=== PATIENT | female | born 1990 | race Caucasian/White ===

== ENCOUNTER → 2017-04-10 | Outpatient (CLI) | payer BC ==
[~2017-04-10] MED LIST: EPP3 IM; IBUP-103 PO; RIZA10TA18 PO
== END | disposition home or self-care (01) ==
LOC: C.PAPS 09:29
PROVIDERS: ATTEND Obstetrics & Gynecology
DX: Z01.419 Encounter for gynecological examination (general) (routine) without abnormal findings (principal)

== ENCOUNTER → 2017-05-17 | Outpatient (CLI) | payer BC ==
[2017-05-17 18:46] LABS: URINE APPEARANCE CLEAR (CLEAR); URINE BILIRUBIN NEG (NEG); URINE COLOR YELLOW; URINE NITRITE NEG (NEG); URINE SPECIFIC GRAVITY 1.032 (1.000-1.030); UROBILINOGEN NEG (NEG)
[2017-05-17 18:58] LABS: MANUAL MICROSCOPIC REQUIRED? NO; REVIEW REQ? NO
== END | disposition home or self-care (01) ==
LOC: C.LABSPEC 17:45
PROVIDERS: ATTEND Obstetrics & Gynecology
DX: Z34.01 Encounter for supervision of normal first pregnancy, first trimester (principal)

== ENCOUNTER → 2017-05-25 | Outpatient (CLI) | payer BC ==
[2017-05-25 17:49] LABS: BASO % 0.5 %; BASO ABS # 0.04 K/uL (0-0.2); COMPLETE YES; EOS % 1.4 %; HEMATOCRIT 34.7 % (37-47); IG% 0.3 %; LYMPH % 33.4 %; LYMPH ABS # 2.59 K/uL (1.2-3.4); MEAN CELL VOLUME 89.4 fL (80-100); MEAN CORPUSCULAR HEMOGLOBIN 31.2 pg (25-34); MEAN CORPUSCULAR HGB CONC 34.9 g/dl (32-36); MEAN PLATELET VOLUME 9.4 fL (7.4-10.4); MONO % 9.1 %; NEUT % 55.3 %; PLATELET COUNT 249 K/uL (130-400); RED BLOOD COUNT 3.88 M/uL (4.2-5.4); WHITE BLOOD COUNT 7.76 K/uL (4.8-10.8)
[2017-05-29 10:37] LABS: CHLAMYDIA TRACH RNA*** NOT DETECTED (NOT DETECTED); GC (NEIS GONORRHOEAE)RNA** NOT DETECTED (NOT DETECTED)
== END | disposition home or self-care (01) ==
LOC: C.LAB1850 16:13
PROVIDERS: ATTEND Obstetrics & Gynecology
DX: Z34.01 Encounter for supervision of normal first pregnancy, first trimester (principal)

== ENCOUNTER → 2017-07-20 | Outpatient (CLI) | payer BC ==
[2017-07-20 18:16] LABS: GTGD 50 Grams
[2017-07-23 14:07] LABS: AFP CONCENTRATION 53.7 NG/ML; AFP MULTIPLE OF MEDIAN 1.41; AFPTS INSULIN DEP DIABETIC? NO; AFPTS MATERNAL WT 145 LBS; ALPHA-FETOPROTEIN RACE AFRICAN AMERICAN=B; EDD DETERMINED BY ULTRASOUND; ESTRIOL MULTIPLE OF MEDIAN 1.46; HISTORY OF NTD NO; INHIBIN A 74 PG/ML; INHIBIN A MOM 0.43; REPEAT SAMPLE? NO; hCG MULTIPLE OF MEDIAN 0.45
== END | disposition home or self-care (01) ==
LOC: C.LAB1850 16:46
PROVIDERS: ATTEND Obstetrics & Gynecology
DX: Z34.02 Encounter for supervision of normal first pregnancy, second trimester (principal)

== ENCOUNTER → 2017-10-10 | Outpatient (CLI) | payer BC ==
[2017-10-10 17:31] LABS: HEMATOCRIT 32.9 % (37-47); HEMOGLOBIN 11.4 g/dL (12.0-16.0)
== END | disposition home or self-care (01) ==
LOC: C.LAB1850 16:12
PROVIDERS: ATTEND Obstetrics & Gynecology
DX: Z34.03 Encounter for supervision of normal first pregnancy, third trimester (principal); Z3A.00 Weeks of gestation of pregnancy not specified

== ENCOUNTER → 2017-10-19 | Outpatient (CLI) | payer BC | END | disposition home or self-care (01) | LOC: C.LAB1850 07:24 | PROVIDERS: ATTEND Obstetrics & Gynecology | DX: O28.1 Abnormal biochemical finding on antenatal screening of mother (principal) ==

== ENCOUNTER → 2017-12-14 | Outpatient (CLI) | payer BC | END | disposition home or self-care (01) | LOC: C.LABSPEC 18:15 | PROVIDERS: ATTEND Obstetrics & Gynecology | DX: Z34.03 Encounter for supervision of normal first pregnancy, third trimester (principal) ==

== ENCOUNTER 2018-01-01 02:05 | Inpatient (IN) | payer BC ==
[~2018-01-01] VITALS: Ht 162.6 cm; Wt 74.4 kg
[2018-01-01] MEDS ORDERED: LACTATED RINGER'S 1000ML 1,000 ML IV SCH (02:39)
[2018-01-01] MEDS ORDERED: LACTATED RINGER'S 1000ML 1,000 ML IV PRN (02:39)
[2018-01-01] MEDS ORDERED: PRENTAB26 PO (02:47)
[2018-01-01 02:50] VITALS: Ht 162.6 cm; Wt 74.4 kg
[2018-01-01 03:15] LABS: MEAN CELL VOLUME 90.7 fL (80-100); MEAN CORPUSCULAR HEMOGLOBIN 31.9 pg (25-34); MEAN CORPUSCULAR HGB CONC 35.1 g/dl (32-36); PLATELET COUNT 251 K/uL (130-400); RED CELL DISTRIBUTION WIDTH CV 12.8 % (11.5-14.5); RED CELL DISTRIBUTION WIDTH SD 42.5 fL (36.4-46.3); WHITE BLOOD COUNT 16.31 K/uL (4.8-10.8)
[2018-01-01] MEDS ORDERED: BUPIVACAINE 0.25% 30 ML VIAL ONE (03:18)
[2018-01-01] MEDS ORDERED: EpHEDrine SULFATE INJ 50 MG/ML AMP ONE (03:19)
[2018-01-01] MEDS ORDERED: FENTANYL CITRATE INJ 50 MCG/1 ML 2 ML VIAL ONE (03:19)
[2018-01-01] MEDS ORDERED: FENTANYL 2MCG/ML ROPIV 1.25MG/ML 100ML BAG EPI ONE (03:19)
[2018-01-01] MEDS ORDERED: LACTATED RINGER'S 1000ML 500 ML IV PRN ×2 (04:06→05:51)
[2018-01-01] MEDS ORDERED: NALOXONE HCL INJ 1 MG in SODIUM CHLORIDE 0.9% 1000ML 1,000 ML IV PRN (04:06)
[2018-01-01] MEDS ORDERED: ONDANSETRON INJ 2 MG/ML 2 ML VIAL IV PRN (04:15)
[2018-01-01] MEDS ORDERED: NALOXONE HCL INJ 0.4 MG/1 ML VIAL/CARP IV PRN (04:15)
[2018-01-01] MEDS ORDERED: PROMETHAZINE HCL INJ 6.25 MG in SODIUM CHLORIDE 0.9% 50ML 50 ML IV PRN (04:15)
[2018-01-01] MEDS ORDERED: FENTANYL 2MCG/ML ROPIV 1.25MG/ML 100ML BAG EPI PRN (04:15)
[2018-01-01] MEDS ORDERED: EpHEDrine SULFATE INJ 50 MG/ML AMP IV PRN (04:15)
[2018-01-01] MEDS ORDERED: NALBUPHINE HCL INJ 10 MG/ML AMP IV PRN (04:15)
[2018-01-01] MEDS ORDERED: DiphenhydrAMINE HCL 50 MG/ML VIAL IV PRN (04:15)
[2018-01-01] MEDS ORDERED: OXYTOCIN 30 UNITS/500ML NSS IV PRN ×2 (06:00→09:15)
--- NOTE | 2018-01-01 08:27 | DELIVERY SUMMARY ---
DATE OF OPERATION: 01/01/2018 The patient dilated to complete and pushed to deliver a viable male Apgars 8 and 9 via over small second-degree perineal laceration. Mouth and nose bulb suctioned at the perineum. Shoulders and body are delivered with ease. The was vigorous and crying at . Cord is clamped at 30 seconds of life. to maternal abdomen, where the cord was then doubly clamped and cut. The placenta was delivered spontaneously and intact, 3-vessel cord. Hemostasis achieved with dilute Pitocin and uterine massage. Cervix and sulci intact. Perineal laceration was repaired in a usual fashion with 3-0 Vicryl. Right labial separation reapproximated using 4-0 Vicryl. Mother and baby stable in recovery. EBL is 300 mL. I attest to the content of the Intraoperative Record and any orders documented therein. Any exceptions are noted below. MTDD
--- NOTE | 2018-01-01 09:06 | Anesthesia Procedure Note ---
Anesthesia Epidural Removal Nt Date & Time Jan 01, 2018 at 09:06 Notes Mental Status: alert / awake / arousable, participated in evaluation Nausea / Vomiting: adequately controlled Pain: adequately controlled Airway Patency, RR, SpO2: stable & adequate BP & HR: stable & adequate Hydration State: stable & adequate Neuraxial Anesthesia: was administered Anesthetic Complications: no major complications apparent, pt satisfied with anesthetic care Epidural: removed without complications, with tip intact
[2018-01-01] MEDS ORDERED: OXYCODONE/ACETAMINOPHEN 5-325 TAB PO PRN (09:15)
[2018-01-01] MEDS ORDERED: LANOLIN OINT EXT PRN (09:15)
[2018-01-01] MEDS ORDERED: ACETAMINOPHEN 325 MG TAB PO PRN (09:15)
[2018-01-01] MEDS ORDERED: HYDROCORTISONE ACETATE 25 MG SUPP PR PRN (09:15)
[2018-01-01] MEDS ORDERED: SUPERCREAM 0.870 % 15GM JAR EXT PRN (09:15)
[2018-01-01] MEDS ORDERED: DIPHTHERIA/TETANUS/PERTUSSIS 0.5 ML SYR/VIAL IM. ONE (09:15)
[2018-01-01] MEDS: OXYTOCIN INJ 20 UNITS in LACTATED RINGER'S 1000ML 1,000 ML IV SCH ×2 (10:51→20:08)
[2018-01-01 13:25] VITALS: BP 129/68; PULSE 89; TEMP 36.7
[2018-01-01 15:45] VITALS: BP 129/76; PULSE 85; TEMP 37.2; O2SAT 99
[2018-01-01] MEDS: IBUPROFEN 600 MG TAB PO PRN (16:26)
[2018-01-01 20:10] VITALS: BP 98/60; PULSE 82; TEMP 36.8; O2SAT 97
[2018-01-01] MEDS: DOCUSATE SODIUM 100 MG CAP PO SCH (20:58)
[2018-01-01 23:50] VITALS: BP 114/74; PULSE 78; TEMP 36.5
[2018-01-02 04:45] VITALS: BP 126/83; PULSE 77; TEMP 36.4
[2018-01-02] MEDS: IBUPROFEN 600 MG TAB PO PRN ×2 (04:58→17:40)
--- NOTE | 2018-01-02 06:39 | Progress Note ---
Subjective Jan 02, 2018. Subjective conversation w/ patient, conversation w/ family, physical exam, chart review, lab review Ambulation: ambulating normally Voiding: no voiding problems Passing Gas: Yes Diet Tolerance: Regular Diet Lochia: Moderate Feeding Type: Breast Feeding Review of Systems Constitutional: No fever, No chills Respiratory: No cough, No shortness of breath Cardiac: No chest pain Abdomen: No pain, No nausea, No vomiting Female : No dysuria Objective Vital Signs Date Time Temp Pulse Resp B/P (MAP) Pulse Ox O2 Delivery O2 Flow Rate FiO2 01/02/18 04:45 36.4 77 18 126/83 (97) 01/01/18 23:50 Room Air 01/01/18 23:50 36.5 78 16 114/74 (87) 01/01/18 20:10 36.8 82 18 98/60 (73) 97 Room Air 01/01/18 15:45 99 Room Air 01/01/18 15:45 37.2 85 18 129/76 01/01/18 13:25 36.7 89 18 129/68 Physical Exam General Appearance: WELL-APPEARING, WD/WN, NO APPARENT DISTRESS Respiratory/Chest: lungs clear, no respiratory distress Cardiovascular: regular rate, rhythm, no murmur Abdomen: non tender, soft Fundus: Firm, Relation to Umbilicus (2 cm below u) Extremities: non-tender, normal inspection Medications Current Inpatient Medications Medications (Trade) Dose Ordered Sig/Regulo Route Start Time Stop Time Status Last Admin Dose Admin Oxytocin (Pitocin IV) 30 units UD PRN IV 01/01/18 09:15 01/31/18 09:14 Benzocaine (Dermoplast Aero Spr) 1 appln PRN PRN EXT 01/01/18 09:15 01/31/18 09:14 Cocaine HCl (Supercream 0.870% Cr) BID PRN EXT 01/01/18 09:15 01/15/18 09:14 Hydrocortisone Acetate (Anusol Hc Supp) 25 mg BID PRN OK 01/01/18 09:15 01/31/18 09:14 Lanolin (Lanolin Oint) PRN PRN EXT 01/01/18 09:15 01/31/18 09:14 Ibuprofen (Motrin Tab) 600 mg Q4H PRN PO 01/01/18 09:15 01/31/18 09:14 01/02/18 04:58 600 MG Acetaminophen (Tylenol Tab) 650 mg Q6H PRN PO 01/01/18 09:15 01/31/18 09:14 Oxycodone/ Acetaminophen (Percocet 5-325mg Tab) 1 tab Q4H PRN PO 01/01/18 09:15 01/15/18 09:14 Docusate Sodium (coLACE CAP) 100 mg BID PO 01/01/18 20:00 01/31/18 19:59 01/01/18 20:58 100 MG Assessment and Plan Post- Day#: 1 Continue Routine Care: 27 A+/GBS-/RI PPD1, vaginal delivery morning of 01/01. Reviewed vitals, WNL. No signs or sx of anemia. Patient is doing well clinically. Plan; 1. Cont. pp care; ambulate, control pain, support BF, monitor lochia Resident Physician Supervision Note: I interviewed and examined the patient. Discussed with Dr. Magdaleno and agree with findings and plan as documented in the note. Any exceptions or clarifications are listed here: Doing well. Routine care. ff 2 down. voiding, ambulating and ralph po well. . Documented By: Nancy Adrian
[2018-01-02 08:10] VITALS: BP 110/76; PULSE 76; TEMP 37; O2SAT 99
[2018-01-02] MEDS: BENZOCAINE 20% AER SPR 82.5 GM CAN EXT PRN (08:20)
[2018-01-02] MEDS: DOCUSATE SODIUM 100 MG CAP PO SCH ×2 (08:20→20:38)
[2018-01-02 15:18] VITALS: BP 125/82; PULSE 75; TEMP 37
[2018-01-03 00:10] VITALS: BP 120/79; PULSE 82; TEMP 37.1; O2SAT 98
[2018-01-03] MEDS ORDERED: NURSING VERBAL MED ORDER ONE (00:30)
[2018-01-03] MEDS ORDERED: MAGNESIUM HYDROXIDE SUSP 30 ML UDC PO ONE (00:45)
--- NOTE | 2018-01-03 06:07 | Discharge Instructions ---
Discharge Instructions Date of Service Jan 03, 2018. Admission Reason for Admission: LABOR Discharge Discharge Diagnosis / Problem: vaginal delivery Discharge Goals Goal(s): Routine recovery after delivery Medications Continue Dispensed Medications: supercream, dermaplast, tucks, lansinoh Activity Recommendations Activity Limitations: per Instructions/Follow-up section . Instructions / Follow-Up Instructions / Follow-Up ACTIVITY RECOMMENDATIONS: * Gradual return to full activity over the next 2-3 weeks. * No lifting - nothing heavier than baby over the next 2-3 weeks. * Do not engage in vigorous exercise, sexual activity or sports until cleared by your physician. * Do not drive or operate any motorized equipment until cleared by your physician. * You may shower/bathe daily. MEDICATIONS: For discomfort or pain, you may use Acetaminophen (Tylenol), Ibuprofen (Advil), or Naproxen (Aleve) following the package directions. For constipation you may use Colace following the package directions. BREAST CARE: If you are not breast feeding: * Wear a supportive bra 24 hours a day for one to two weeks. * Avoid stimulating your breasts and nipples as much as possible during the first few weeks after delivery. * When taking a shower, have the warm water hit your back, not breasts. * When your breasts feel full, apply ice packs. Usually three to four times a day helps ease the discomfort. * Take a mild pain medication (Tylenol / Motrin) when you are uncomfortable. If breast feeding: * Use breast milk to lubricate nipples. Lansinoh cream may be used for sore nipples. You do not need to remove cream prior to breast feeding. If using a different brand of cream, check the label for directions regarding removal of cream prior to nursing. * Wear a supportive bra. * If having problems with breasts or breast feeding, call a internal consultant or your health care provider. EPISIOTOMY CARE: After delivery, if you have an episiotomy (stitches), the following steps will ease discomfort and aid healing. * For the first 24 hours after delivery, place ice packs next to your episiotomy to help reduce swelling. * After the first 24 hour-period, sitz baths, either portable or in the tub, are suggested. A shower with a shower arm sprayed over the episiotomy may be comforting. * Yessenia care should be done after each voiding and bowel movement. Squirt warm water from a plastic bottle over the perineum (region of the body between the anus and urinary opening) and pat dry. * Use Dermoplast to ease discomfort. Shake container. [place] directly over the episiotomy. Place a Tucks on a clean sanitary pad next to your episiotomy. SPECIAL CARE INSTRUCTIONS: When you are discharged from the hospital, it is important for you to follow the instructions listed below: * During the first week at home, you should be able to care for yourself and your baby. In addition, the usual light household activities are encouraged. * Limit your activities to the way you feel. Do not try to clean the house or move furniture. Be sensible. * If you actively engage in sports and have done so up until the time of your delivery, you may resume these activities as soon as you feel able. This may take up to one month or even longer. Use good judgment. * Continue to take your vitamins for at least six weeks after the of your baby. * Your diet need not be limited unless you were on a special diet before your delivery. Breast-feeding mothers need around 2500 calories per day and at least 64-80 ounces of fluid per day (8 to 10 glasses). * You should eat foods from the four major food groups. Crash diets or fad diets are to be avoided. Eating lean meats, fresh fruits and vegetables, low-fat dairy products, high fiber foods and a regular exercise program, will help you get back to your pre- weight without putting your health at risk. * Constipation is sometimes a problem after delivery. Take a mild laxative as needed. If breast feeding, Milk of Magnesia is acceptable to use. You may use a suppository or Fleets enema if no episiotomy. * A daily shower or tub bath is suggested. Be sure to thoroughly and gently dry the perineum. * A bloody vaginal discharge will usually continue until around four weeks post . A small amount of bleeding may continue for as long as six weeks. Vaginal discharge changes from the bright red bleeding after delivery to pink then brownish and finally yellowish-pink before becoming white and disappearing. * Bleeding may increase with activity. Your first period may come in 4-8 weeks. If you are breast feeding, your period may be delayed even longer. * [place] (sex) can begin whenever both you and your partner feel comfortable and do not have any form of genital infection. It is recommended that you wait at least six weeks for internal and external healing to occur. If you have questions, please talk to your health care practitioner. A condom should be used to prevent infection and . * Foreplay, gentle intercourse and lubrication is very important the first several times to prevent pain. A water-based lubricant such as K-Y jelly or Astroglide may be used. * If you have RH negative blood and your baby is RH positive, you will receive RHOGAM by injection prior to discharge. The nurse will give you a card to keep with you that has the date and place that you received RHOGAM after delivery. * During your care, you had a Rubella screen done to check for the presence of rubella antibodies in your blood. If your test was negative, you will receive a Rubella vaccine prior to discharge. This vaccine may cause a fever, soreness at the injection site and flu-like symptoms. If these symptoms persist, notify your health care practitioner. is not advised for one month after a Rubella vaccine. * Verbalizes understanding of car seat law as reviewed with patient nursing. * Car Seat hand-out given and reviewed with patient by nursing. * Shaken baby information reviewed with patient by nursing. Call you doctor if: * Heavy bleeding (saturating several pads an hour) or passing clots the size of your fist. * A fever >101 degrees F (38.3 degrees C) on two occasions four hours apart and /or chills. * Unusual pain in the pelvic or vaginal areas. * "Baby Blues" lasting longer than two weeks. If you have any questions or concerns, call your health care practitioner at . FOLLOW UP VISIT: * Please call the office at to schedule a 6 week examination. It is important you keep this appointment. It is important for you to make arrangements for either yearly or twice yearly check-ups thereafter. Current Hospital Diet Patient's current hospital diet: Regular OB Diet Discharge Diet Recommended Diet: Regular Diet, Regular OB Diet Pending Studies Studies pending at discharge: no Medical Emergencies . Who to Call and When: Medical Emergencies: If at any time you feel your situation is an emergency, please call 225 immediately. . Non-Emergent Contact Non-Emergency issues call your: Primary Care Provider, Mate Fourth . . "Provider Documentation" section prepared by Alvaro Magdaleno. .
--- NOTE | 2018-01-03 06:53 | Progress Note ---
Subjective Jan 03, 2018. Subjective conversation w/ patient, physical exam, chart review, lab review Ambulation: ambulating normally Voiding: no voiding problems Passing Gas: Yes Diet Tolerance: Regular Diet Lochia: Small Feeding Type: Breast Feeding Review of Systems Constitutional: No fever, No chills Respiratory: No cough, No shortness of breath Cardiac: No chest pain, No palpitations Abdomen: No pain, No nausea, No vomiting Female : No dysuria Objective Vital Signs Date Time Temp Pulse Resp B/P (MAP) Pulse Ox O2 Delivery O2 Flow Rate FiO2 01/03/18 00:10 98 Room Air 01/03/18 00:10 37.1 82 18 120/79 (93) 98 Room Air 01/02/18 15:18 Room Air 01/02/18 15:18 37.0 75 18 125/82 (96) Room Air 01/02/18 08:10 37.0 76 18 110/76 (87) 99 Room Air 01/02/18 08:10 99 Room Air Physical Exam General Appearance: WELL-APPEARING, WD/WN, NO APPARENT DISTRESS Respiratory/Chest: lungs clear, no respiratory distress Cardiovascular: regular rate, rhythm, no murmur Abdomen: non tender, soft Fundus: Firm, Relation to Umbilicus (2 below) Extremities: non-tender, normal inspection Medications Current Inpatient Medications Medications (Trade) Dose Ordered Sig/Regulo Route Start Time Stop Time Status Last Admin Dose Admin Oxytocin (Pitocin IV) 30 units UD PRN IV 01/01/18 09:15 01/31/18 09:14 Benzocaine (Dermoplast Aero Spr) 1 appln PRN PRN EXT 01/01/18 09:15 01/31/18 09:14 01/02/18 08:20 1 APPLN Cocaine HCl (Supercream 0.870% Cr) BID PRN EXT 01/01/18 09:15 01/15/18 09:14 Hydrocortisone Acetate (Anusol Hc Supp) 25 mg BID PRN [place] 01/01/18 09:15 01/31/18 09:14 Lanolin (Lanolin Oint) PRN PRN EXT 01/01/18 09:15 01/31/18 09:14 Ibuprofen (Motrin Tab) 600 mg Q4H PRN PO 01/01/18 09:15 01/31/18 09:14 01/02/18 17:40 600 MG Acetaminophen (Tylenol Tab) 650 mg Q6H PRN PO 01/01/18 09:15 01/31/18 09:14 Oxycodone/ Acetaminophen (Percocet 5-325mg Tab) 1 tab Q4H PRN PO 01/01/18 09:15 01/15/18 09:14 Docusate Sodium (coLACE CAP) 100 mg BID PO 01/01/18 20:00 01/31/18 19:59 01/02/18 20:38 100 MG Magnesium Hydroxide (Milk Of Magnesia Susp) 30 ml TODAY@0900 PRN PO 01/03/18 09:00 01/03/18 11:00 Assessment and Plan Post- Day#: 2 Continue Routine Care: Resident Physician Supervision Note: I interviewed and examined the patient. Discussed with Dr. Magdaleno and agree with findings and plan as documented in the note. Any exceptions or clarifications are listed here: [None] Documented By: Kaleigh Champagne Rosanna 27 A+/GBS-/RI PPD2, vaginal delivery morning of 01/01. Reviewed vitals, WNL. No signs or sx of anemia. Patient is doing well clinically. Plan; 1. Cont. pp care; ambulate, control pain, support BF, monitor lochia 2. Discussed dc planning
[2018-01-03 07:30] VITALS: BP 116/80; PULSE 71; TEMP 37; O2SAT 97
[2018-01-03] MEDS: DOCUSATE SODIUM 100 MG CAP PO SCH (07:42)
[2018-01-03] MEDS: IBUPROFEN 600 MG TAB PO PRN (07:44)
[2018-01-03] MEDS ORDERED: MAGNESIUM HYDROXIDE SUSP 30 ML UDC PO PRN (09:00)
[2018-01-03] MEDS: BENZOCAINE 20% AER SPR 82.5 GM CAN EXT PRN (11:46)
[2018-01-03 13:30] VITALS: BP_DIAS 80; PULSE 71; TEMP 37
== END 2018-01-03 13:50 | disposition home or self-care (01) | DRG 775 ==
LOC: C.LD 02:05 → C.OPB 02:05 → C.LD 02:40 → C.MS4N 14:10 → EDSTATUS 01-04 02:04
PROVIDERS: ADMIT Obstetrics & Gynecology; ATTEND Obstetrics & Gynecology
PROC: 0KQM0ZZ Repair Perineum Muscle, Open Approach (ICD-10-PCS; principal; 2018-01-01)
PROC: 10E0XZZ Delivery of Products of Conception, External Approach (ICD-10-PCS; principal; 2018-01-01)
DX: O70.1 Second degree perineal laceration during delivery (principal); Z3A.39 39 weeks gestation of pregnancy; Z37.0 Single live birth

== ENCOUNTER 2020-10-23 01:10 | Inpatient (IN) ==
[2020-10-23] MEDS ORDERED: LACTATED RINGER'S 1,000 ML IV PRN (01:45)
[2020-10-23] MEDS ORDERED: PENICILLIN G POTASSIUM 3 MU in DEXTROSE 5% 100 ML IV PRN (01:45)
[2020-10-23] MEDS ORDERED: PENICILLIN G POTASSIUM 6 MU in DEXTROSE 5% 250 ML IV STA (01:45)
[2020-10-23] MEDS ORDERED: OXYTOCIN 30 UNITS/500 ML BAG IV PRN ×2 (01:45→05:22)
[2020-10-23] MEDS ORDERED: ePHEDrine sulfate 50 MG/ML AMP ONE (01:48)
[2020-10-23] MEDS ORDERED: BUPIVACAINE 0.25% 30 ML VIAL ONE (01:48)
[2020-10-23] MEDS ORDERED: SODIUM CHLORIDE 0.9% INJ 10 ML VIAL ONE (01:48)
[2020-10-23] MEDS ORDERED: fentaNYL citrate 100 MCG/2 ML VIAL ONE (01:48)
[2020-10-23] MEDS ORDERED: fentaNYL 2MCG/ML ROPIVACAINE 1.25MG/ML 100 ML BAG EPI ONE (01:49)
[2020-10-23 02:18] LABS: Hematocrit (blood only) 36.8 % (37-47); Hemoglobin 12.6 g/dL (12.0-16.0); Mean Corpuscular Hemoglobin 31.3 pg (25-34); Mean Corpuscular Hgb Conc 34.2 g/dL (32-36); Mean Corpuscular Volume 91.5 fL (80-100); Mean Platelet Volume 9.6 fL (7.4-10.4); Platelet Count 274 K/uL (130-400); RDW Coefficient of Variation 12.9 % (11.5-14.5); RDW Standard Deviation 43.4 fL (36.4-46.3); Red Blood Count 4.02 M/uL (4.2-5.4); White Blood Count 14.77 K/uL (4.8-10.8)
--- NOTE | 2020-10-23 02:57 | Anesthesiology Consultation ---
Date of Service October 23, 2020 Assessment & Plan Chart Review Chart Review: Acceptable Risk for Labor Epidural Consults Requested none History Height/Weight Height: 5 ft 5 in Weight: 73.936 kg Allergies Allergy/AdvReac Type Severity Reaction Status Date / Time Cephalosporins Allergy Mild GI SYMPTOMS Verified 10/22/20 16:13 Medications Home Medications Medication Instructions Recorded Confirmed Last Taken [id number] fumarate-FA 1 tab PO DAILY 10/23/20 10/23/20 10/22/20 [] Active Medications Generic Name Dose Route Start Last Admin Trade Name Freq PRN Reason Stop Dose Admin Lactated Ringer's 1,000 mls @ 125 mls/hr 10/23/20 01:45 10/23/20 02:08 Lr IV 10/25/20 01:44 999 mls/hr .Q8H PRN Administration L&D Protocol Protocol Past Medical History Medical History Encounter for anatomic survey Hx of varicella Normal vaginal delivery Past Family History Family History Father Diabetes Past Surgical History Surgical History [place] teeth removed Social History Smoking Status: Never smoker Hx Alcohol Use: No Hx Substance Use: No Physical Exam Vital Signs Last Vital Signs Temp 36.7 C 10/23/20 01:30 Pulse 95 H 10/23/20 02:54 Resp 18 10/23/20 01:30 BP 105/55 L 10/23/20 02:50 Pulse Ox 97 10/23/20 02:54 Testing Laboratory Results 10/23/20 02:11
[2020-10-23] MEDS ORDERED: fentaNYL 2MCG/ML ROPIVACAINE 1.25MG/ML 100 ML BAG EPI PRN (02:59)
[2020-10-23] MEDS ORDERED: ePHEDrine sulfate 50 MG/ML AMP IV PRN (02:59)
[2020-10-23] MEDS ORDERED: NALOXONE HCL 0.4 MG/1 ML VIAL/CARP IV PRN (02:59)
[2020-10-23] MEDS ORDERED: NALOXONE HCL 1 MG in SODIUM CHLORIDE 0.9% 1000ML 1,000 ML IV PRN (02:59)
[2020-10-23] MEDS ORDERED: diphenhydrAMINE 50 MG/ML VIAL IV PRN (02:59)
[2020-10-23] MEDS ORDERED: LIDOCAINE HCL 1% 20 ML VIAL ONE (05:01)
[2020-10-23] MEDS ORDERED: DIPHTHERIA/TETANUS/PERTUSSIS 0.5 ML SYR/VIAL IM ONE (05:22)
[2020-10-23] MEDS ORDERED: BENZOCAINE 20% AER SPR 82.5 GM CAN EXT PRN (05:22)
[2020-10-23] MEDS ORDERED: HYDROCORTISONE ACETATE 25 MG SUPP PR PRN (05:22)
[2020-10-23] MEDS ORDERED: ACETAMINOPHEN 325 MG TAB PO PRN (05:22)
[2020-10-23] MEDS ORDERED: bisacodyL 10 MG SUPP PR PRN (05:22)
[2020-10-23] MEDS ORDERED: SUPERCREAM 0.870% 15 GM JAR EXT PRN (05:22)
[2020-10-23] MEDS: IBUPROFEN 600 MG TAB PO PRN ×3 (07:23→19:40)
--- NOTE | 2020-10-23 08:58 | Anesthesia Procedure Note ---
Date of Service October 23, 2020 Anesthesia Post Epidural Note Vital Signs Vital Signs: Temp Pulse Resp BP Pulse Ox 36.7 C 89 18 137/84 93 10/23/20 07:20 10/23/20 07:03 10/23/20 07:20 10/23/20 07:03 10/23/20 05:32 Notes Mental Status: alert / awake / arousable and participated in evaluation Patient Amnestic to Procedure: Yes Nausea / Vomiting: adequately controlled Pain: adequately controlled Airway Patency, RR, SpO2: stable & adequate BP & HR: stable & adequate Hydration State: stable & adequate Anesthetic Complications: no major complications apparent and Pt Satisfied with anesthetic care
--- NOTE | 2020-10-23 09:09 | Delivery Summary ---
DATE OF OPERATION: 10/23/2020 PROCEDURE: Normal spontaneous vaginal delivery with bilateral labial and first-degree perineal laceration repairs. SURGEON: Ad Borrego MD. PREOPERATIVE DIAGNOSES: 1. Single intrauterine at 40 weeks 6 days gestational age. 2. Spontaneous labor. 3. GBS positive. POSTOPERATIVE DIAGNOSES: 1. Single intrauterine at 40 weeks 6 days gestational age. 2. Spontaneous labor. 3. GBS positive. 4. Status post delivery. ESTIMATED BLOOD LOSS: 300 mL. DRAINS: None. FLUIDS: Continuous lactated ringer. URINE OUTPUT: Not measured. COMPLICATIONS: None. FINDINGS: Viable with weight of 7 pounds 4.8 ounces and Apgars of 9 and 10 at 1 and 5 minutes respectively. HOSPITAL COURSE: The patient was admitted to labor and delivery in active labor. At time of presentation, she was found to be 6-7 cm dilated appearing in active labor. The patient was admitted and opted for an epidural, which was placed. The patient underwent spontaneous rupture of membranes and progressed to complete-complete +2 station over a 3-4 hour period of time. The patient pushed over 2 contractions to achieve delivery. DESCRIPTION OF PROCEDURE: The patient progressed to 10 cm dilated, 100% effaced, +2 station, pushed over intact perineum with epidural anesthesia and delivered a viable with weight and Apgars as noted above. Head of the delivered in MARK position, restituted to left transverse. No nuchal cord was noted. A ____ wrapped around both feet multiple times was noted. No nuchal cord was noted. Body and shoulders quickly followed. Baby was noted to have several wraps of the cord around the legs. After delivery, which were reduced and delivery to maternal abdomen was notable for a vigorous . A 1-minute delayed cord clamping was initiated, after which the cord was double clamped and cut. remained on maternal abdomen. Cord blood was obtained. Attention was then turned to deliver the placenta, which was delivered intact, 3-vessel cord, gentle cord traction. On inspection of perineum, vagina, and cervix was notable for first-degree perineal laceration, which was repaired with a continuous running stitch of 3-0 Vicryl. There was also noted to be bilateral periurethral which was repaired with 3-0 interrupted stitch. Needle, sponge and instrument counts were correct at the completion of the case with mother and stable in the immediate post-delivery period. I attest to the content of the Intraoperative Record and any orders documented therein. Any exception s are noted below.
[2020-10-23] MEDS: PRENATAL VITAMIN 1 TAB PO SCH (09:30)
[2020-10-23] MEDS: DOCUSATE SODIUM 100 MG CAP PO SCH ×2 (09:30→19:40)
[2020-10-24] MEDS: IBUPROFEN 600 MG TAB PO PRN ×3 (00:22→20:19)
--- NOTE | 2020-10-24 06:25 | Obstetrical Progress Note ---
Date of Service <Bryanna Gonzalez DO - Last Filed: 10/24/20 06:25> October 24, 2020 Assessment & Plan <Bryanna Gonzalez DO - Last Filed: 10/24/20 06:25> (1) state: PPD #1 - PNL: Rh pos, RI, GBS POSITIVE, COVID neg - Feels well today. Eating well, voiding well, ambulating well. - Pain well controlled with ibuprofen 600mg Q4H PRN - Routine care -- OOB, ambulation, diet progression as tolerated - After discharge will have 6 week follow-up with Dr. Borrego. Subjective <Bryanna Arechiga Alonsy - Last Filed: 10/24/20 06:25> Jocelyn Castaneda is a 30 y/o female who is PPD #1 following spontaneous vaginal delivery at 40 + 6 weeks. She reports feeling well overall this morning. Minimal abdominal cramping and 2/10 pain well managed on analgesics. Voiding without dysuria. Tolerating meals overnight without difficulty. Patient has been able to ambulate some. She is passing gas. Has persistent lochia with some improvement this morning. Currently . Review of Systems Denies fever or chills. Denies shortness of breath or cough. Denies chest pain. Denies breast pain. Denies dysuria. Denies leg pain or leg swelling. Denies headache or changes in vision. Physical Exam <Bryanna AbreuEvelin Chisy - Last Filed: 10/24/20 06:25> General: Alert, oriented. No acute distress. Cardiac: Regular rate and rhythm. No murmurs. Respiratory: Clear to auscultation bilaterally a/p, no wheezes/rales/rhonchi. No increased work of breathing. Symmetrical chest rise. No respiratory distress. Abdomen: Soft, nontender, nondistended. Bowel sounds present. Uterus: Uterine fundus firm, palpable 1 cm below umbilicus. Lower Extremities: No lower extremity edema or swelling. No deep calf pain. Valerie's negative bilaterally. Results & Data ([facility]) <Bryanna AbreuEvelin Chidavidfranca - Last Filed: 10/24/20 06:25> Vital Signs (Past 12 Hours) Vital Signs Temp Pulse Resp BP Pulse Ox 10/24/20 04:40 36.4 C L 70 20 118/68 10/24/20 00:25 36.4 C L 68 18 118/64 10/23/20 19:19 36.7 C 81 18 126/83 98 <Michelle Lipscomb MD - Last Filed: 10/24/20 07:00> Co-Signing Physician Notes Resident Physician Supervision Note: I interviewed and examined the patient. Discussed with Dr. Gonzalez and agree with findings and plan as documented in the note. Any exceptions or clarifications are listed here: None Documented By: Michelle Lipscomb MD, FACOG Resident Activity Tracking <Bryanna Gonzalez DO - Last Filed: 10/24/20 06:25> Resident Involvement: Resident Care Provided Care Provided: OB Delivery
[2020-10-24 06:54] LABS: Hematocrit (blood only) 32.7 % (37-47)
[2020-10-24] MEDS: PRENATAL VITAMIN 1 TAB PO SCH (08:54)
[2020-10-24] MEDS: DOCUSATE SODIUM 100 MG CAP PO SCH ×2 (08:54→20:20)
[2020-10-24] MEDS ORDERED: bisacodyL 5 MG TABEC PO SCH (20:00)
[2020-10-25] MEDS: IBUPROFEN 600 MG TAB PO PRN (06:18)
[2020-10-25] MEDS: DOCUSATE SODIUM 100 MG CAP PO SCH (08:19)
[2020-10-25] MEDS: PRENATAL VITAMIN 1 TAB PO SCH (08:19)
--- NOTE | 2020-10-25 09:22 | Obstetrical Progress Note ---
Date of Service October 25, 2020 Assessment & Plan (1) state: Post day 2 s/p . Doing well. Stable for discharge Subjective Ambulation: ambulating normally Voiding: no voiding problems Passing Gas:: Yes Diet Tolerance:: regular diet Lochia:: Moderate Feeding Type:: breast feeding Physical Exam Constitutional WD/WN, vitals as above Respiratory normal respiratory effort; no respiratory distress and no labored breathing Gastrointestinal (Abdomen) Inspection/Auscultation: abdomen normal to inspection; abdomen not distended Percussion/Palpation: abdomen soft; abdomen nontender, no guarding and abdomen not rigid Genitourinary OB Exam Abdomen: + fundal height Fundus: + firm and + relation to umbilicus (Below); not tender and not boggy Results & Data ([facility]) Vital Signs (Past 12 Hours) Vital Signs Temp Pulse Resp BP Pulse Ox 10/25/20 08:00 37 C 80 18 126/77 97 10/24/20 23:30 36.9 C 73 16 123/82 99
== END 2020-10-25 10:55 | disposition home or self-care (01) | DRG 807 ==
LOC: OPB 01:10 → 4S1 01:12 → 4S2 08:00